=== PATIENT | female | born 1965 | race Caucasian/White ===

== ENCOUNTER 2019-07-20 08:01 | Emergency (ER) | payer OTHER ==
[~2019-07-20] VITALS: Ht 157.5 cm; Wt 71.8 kg
[2019-07-20 08:12] VITALS: BP 136/79
--- NOTE | 2019-07-20 08:35 | NUR ---
PT TO ER BED 10
--- NOTE | 2019-07-20 09:01 | NUR ---
PT C/O LEFT HAND AND WRIST PAIN. BENDING WRIST PROVOKES PAIN. HAS BEEN OCCURING FOR 3 WEEKS. SLIGHTLY BRUISED AND SWOLLEN. 9/10 PAIN. SHARP AND BURNING PAIN. DENIES TRAUMA CMS INTACT [facility]: DENIES RX: DENIES
--- NOTE | 2019-07-20 09:26 | NUR ---
Patient being evaluated by Dr. Grant at bedside.
[2019-07-20 10:03] VITALS: BP 147/89
--- NOTE | 2019-07-20 10:03 | NUR ---
Patient discharged with v/s stable. Written and verbal after care instructions given and explained. Patient alert, oriented and verbalized understanding of instructions. Ambulatory with steady gait. All questions addressed prior to discharge. ID band removed. Patient advised to follow up with PMD. Rx of Naprosyn 375mg given. Patient provided with a work excuse. Patient educated on indication of medication including possible reaction and side effects. Opportunity to ask questions provided and answered.
== END 2019-07-20 09:57 | disposition home or self-care (01) ==
LOC: MED 08:01
DX: M65.4 Radial styloid tenosynovitis [de Quervain] (principal)
CPT/HCPCS: 99283

== ENCOUNTER 2022-11-12 07:14 | Emergency (ER) | payer OTHER ==
[~2022-11-12] VITALS: Ht 157.5 cm; Wt 61.2 kg
[2022-11-12 07:26] VITALS: BP 155/87
--- NOTE | 2022-11-12 07:28 | NUR ---
PT AMBULATED TO BED 6. COVID AND FLU SWAB COLLECTED
--- NOTE | 2022-11-12 07:32 | NUR ---
Dr. Beauchamp evaluating pt at bedside
--- NOTE | 2022-11-12 07:35 | NUR ---
57/F WALKED IN C/O COUGH ACCOMPANIED BY UPPER BACK PAIN DURING COUGH. PT REPORTS ONSET 1WK. STATES BACK PAIN X 2 DAYS WORSENS WITH COUGHING. DENIES FEVER, BODYACHE, OR CONGESTION. AFEBRILE AT TRIAGE. PATIENT STATES 3/10, ACHING/INTERMITTENT, NON-RADIATING UPPER BACK PAIN S/P COUGHING EPISODES. STATES IBUPROFEN THIS MORNING WITH MINOR RELIEF. DENIES SICK HOUESHOLD MEMBERS. BED LOCKED IN LOWEST POSITION, SIDE RAILS X 1. PMH: DENIES MEDS: DENIES NKDA SX: DENIES
--- NOTE | 2022-11-12 07:38 | NUR ---
RAD at bedside
[2022-11-12] MEDS ORDERED: BENZ200C4 PO (08:17)
[2022-11-12] MEDS ORDERED: NAPR-54 PO (08:35)
--- NOTE | 2022-11-12 09:00 | NUR ---
Patient discharged with v/s stable. Written and verbal after care instructions given and explained. Patient alert, oriented and verbalized understanding of instructions. Ambulatory with steady gait. All questions addressed prior to discharge. ID band removed. Patient advised to follow up with PMD. Rx of Naproxen, Benzonatate given. Patient educated on indication of medication including possible reaction and side effects. Opportunity to ask questions provided and answered.
== END 2022-11-12 09:00 | disposition home or self-care (01) ==
LOC: MED 07:14
DX: S16.1XXA Strain of muscle, fascia and tendon at neck level, initial encounter (principal); Z20.822 Contact with and (suspected) exposure to COVID-19; J06.9 Acute upper respiratory infection, unspecified; X58.XXXA Exposure to other specified factors, initial encounter; Y93.89 Activity, other specified; Y92.89 Other specified places as the place of occurrence of the external cause; Y99.8 Other external cause status
CPT/HCPCS: 71045; 87426; 87804; 99284; Q0092

== ENCOUNTER 2024-02-27 19:47 | Emergency (ER) | payer OTHER ==
[~2024-02-27] VITALS: Ht 162.6 cm; Wt 61.2 kg
[~2024-02-27 19:47] MED LIST: BENZ200C4 PO; NAPR-54 PO
[2024-02-27 20:10] VITALS: BP 135/77; PULSE 79; RESP 18; TEMP 98.4; O2SAT 97
[2024-02-27 21:23] LABS: FLU A ANTIGEN negative (NEGATIVE); FLU B ANTIGEN negative (NEGATIVE)
[2024-02-28] MEDS ORDERED: AMOX1TAB8 PO (01:03)
[2024-02-28] MEDS ORDERED: BENZ200C4 PO (01:03)
== END 2024-02-27 20:36 | disposition left against medical advice (07) ==
LOC: MED 19:47
DX: R05.9 Cough, unspecified (principal); Z20.822 Contact with and (suspected) exposure to COVID-19; Z53.21 Procedure and treatment not carried out due to patient leaving prior to being seen by health care provider
CPT/HCPCS: 71045; 99281

== ENCOUNTER 2024-02-27 22:35 | Emergency (ER) | payer OTHER ==
[~2024-02-27] VITALS: Ht 160 cm; Wt 59.0 kg
[2024-02-27 22:40] VITALS: BP 140/82; PULSE 78; RESP 17; TEMP 98.4; O2SAT 98
[2024-02-27 23:53] VITALS: O2SAT 97
[2024-02-28] MEDS ORDERED: AMOX1TAB8 PO (01:03)
[2024-02-28] MEDS ORDERED: BENZ200C4 PO (01:03)
[2024-02-28 01:07] VITALS: BP 154/73; PULSE 82; RESP 17; TEMP 98.5; O2SAT 97
== END 2024-02-28 01:07 | disposition home or self-care (01) ==
LOC: MED 22:35
DX: J20.9 Acute bronchitis, unspecified (principal); Z79.899 Other long term (current) drug therapy
CPT/HCPCS: 99283